=== PATIENT | female | born 1995 | race Caucasian/White ===

== ENCOUNTER 2019-05-24 17:45 | Emergency (ER) | payer OTHER ==
[~2019-05-24] VITALS: Ht 154.9 cm; Wt 52.2 kg
[2019-05-24] MEDS ORDERED: PRENATABS FA T1 EACH (17:55)
[2019-05-24] MEDS ORDERED: FOLIC ACID1 MG (17:55)
== END 2019-05-24 22:47 | disposition home or self-care (01) ==
LOC: ER 17:45
DX: O26.892 Other specified pregnancy related conditions, second trimester (principal); R10.2 Pelvic and perineal pain; Z34.02 Encounter for supervision of normal first pregnancy, second trimester

== ENCOUNTER 2019-07-14 21:34 | Outpatient (CLI) | payer OTHER ==
[~2019-07-14 21:34] MED LIST: FOLIC ACID1 MG; PRENATABS FA T1 EACH
== END 2019-07-15 19:28 | disposition home or self-care (01) ==
LOC: OBS/DEL 21:34
DX: O60.02 Preterm labor without delivery, second trimester (principal)

== ENCOUNTER 2019-09-09 22:13 | Inpatient (IN) | payer OTHER ==
[~2019-09-09] VITALS: Ht 154.9 cm; Wt 59.4 kg
== END 2019-09-12 15:15 | disposition home or self-care (01) | DRG 832 ==
LOC: OBS/DEL 22:13 → LDR 09-10 12:08 → OBS/DEL 09-10 12:08 → LDR 09-12 15:15
PROVIDERS: ADMIT Obstetrics & Gynecology
PROC: 4A1HXCZ Monitoring of Products of Conception, Cardiac Rate, External Approach (ICD-10-PCS; principal; 2019-09-10)
DX: O23.33 Infections of other parts of urinary tract in pregnancy, third trimester (principal); O47.03 False labor before 37 completed weeks of gestation, third trimester

== ENCOUNTER 2019-10-11 21:31 | Inpatient (IN) | payer OTHER ==
[~2019-10-11] VITALS: Ht 154.9 cm; Wt 60.8 kg
[2019-10-11] MEDS ORDERED: PRENATAL CAPLE1 EAC1 PO (22:30)
[2019-10-11] MEDS ORDERED: FOLIC ACID0.8 M1 PO (22:30)
== END 2019-10-14 13:25 | disposition home or self-care (01) | DRG 807 ==
LOC: LDR 21:31 → OB/GYN 21:31
PROVIDERS: ADMIT Obstetrics & Gynecology
PROC: 0KQM0ZZ Repair Perineum Muscle, Open Approach (ICD-10-PCS; principal; 2019-10-12)
PROC: 10E0XZZ Delivery of Products of Conception, External Approach (ICD-10-PCS; 2019-10-12)
PROC: 4A1HXFZ Monitoring of Products of Conception, Cardiac Rhythm, External Approach (ICD-10-PCS; 2019-10-12)
PROC: 4A033R1 Measurement of Arterial Saturation, Peripheral, Percutaneous Approach (ICD-10-PCS; 2019-10-12)
PROC: 3E033VJ Introduction of Other Hormone into Peripheral Vein, Percutaneous Approach (ICD-10-PCS; 2019-10-12)
DX: O98.82 Other maternal infectious and parasitic diseases complicating childbirth (principal); Z37.0 Single live birth; B95.1 Streptococcus, group B, as the cause of diseases classified elsewhere; O70.1 Second degree perineal laceration during delivery; Z3A.38 38 weeks gestation of pregnancy